=== PATIENT | female | born 1970 | race African-American/Black ===

== ENCOUNTER 2017-11-04 01:19 | Inpatient (IN) | payer MEDICAID ==
[~2017-11-04] VITALS: Ht 167.6 cm; Wt 87.6 kg
[2017-11-04 02:00] LABS: CALCIUM 8.2 mg/dL (8.5-10.1); CREATININE 3.6 mg/dL (0.6-1.0); GFR 13.6; POTASSIUM 4.1 mmol/L (3.5-5.1)
[2017-11-04] MEDS ORDERED: FUROSEMIDE 40 MG/4 ML VIAL. IVP ONE (02:00)
[2017-11-04 02:01] LABS: BASO % 1 % (0-3); EOS # 0.3 x10^3/uL (0.0-0.7); EOS % 5 % (0-3); HEMATOCRIT 26.9 % (36.0-47.0); HEMOGLOBIN 8.5 g/dL (12.0-15.5); LYMPH # 1.5 x10^3/uL (1.0-4.8); LYMPH % 22 % (24-48); MEAN CORPUSCULAR HEMOGLOBIN 25 pg (25-35); MEAN CORPUSCULAR HGB CONC 32 g/dL (31-37); MEAN CORPUSCULAR VOLUME 79 fL (79-100); MONO # 0.4 x10^3/uL (0.0-1.1); MONO % 6 % (0-9); NEUT # 4.5 x10^3uL (1.8-7.7); NEUT % 67 % (31-73); PLATELET COUNT 236 x10^3/uL (140-400); RED BLOOD COUNT 3.42 x10^6/uL (3.50-5.40); WHITE BLOOD COUNT 6.7 x10^3/uL (4.0-11.0)
[2017-11-04 02:08] LABS: ALBUMIN 2.4 g/dL (3.4-5.0); ALBUMIN/GLOBULIN RATIO 0.5 (1.0-1.7); TOTAL BILIRUBIN 0.1 mg/dL (0.2-1.0); TOTAL PROTEIN 7.2 g/dL (6.4-8.2)
--- NOTE | 2017-11-04 02:44 | RAD ---
PORTABLE CHEST 1V Clinical Indication: hx asthma; sob Comparison: Two-view chest July 19, 2004. Findings: The cardiomediastinal silhouette is normal. There is haziness in the bilateral lung bases with partial obscuration of the hemidiaphragms. This may be partially due to overlying soft tissues but cannot exclude airspace disease. There is no pneumothorax. No pleural effusion is appreciated. No acute bone abnormality. IMPRESSION: Cannot exclude mild bibasilar airspace disease. Electronically signed by: Fabio Knight MD (11/04/2017 2:41 AM) [facility]
--- NOTE | 2017-11-04 03:58 | PHYS DOC ---
Past Medical History Past Medical History: CHF, COPD, Diabetes-Type II, High Cholesterol, Hypertension Past Surgical History: Cholecystectomy, Tubal ligation, Other Additional Past Surgical Histo: KIDNEY BIOPSY, THYROID BIOPSY Alcohol Use: None Drug Use: None Adult General Chief Complaint Chief Complaint: SHORTNESS OF BREATH HPI HPI Patient is a 47-year-old female who presents with approximately 3 day history of shortness of breath that has been progressively worsening. She also indicates that she has been having swelling of her legs. Patient indicates that she has a history of CHF. She states that her shortness of breath is worsened with exertion as well as lying down flat. She also complains of chest pain that she describes as tightness across her chest. She states that that is also worsened with exertion. She does not believe that she has had a heart attack in the past. She does indicate that she has a family history of heart disease. She denies any nausea, vomiting or diaphoresis. Review of Systems Review of Systems Constitutional: Denies fever or chills [] Respiratory: Complains of cough and shortness of breath[] Cardiovascular: Complains of chest pain[] GI: Denies abdominal pain, nausea, vomiting [] All other systems were reviewed and found to be within normal limits, except as documented in this note. Current Medications Current Medications Current Medications Medications (Trade) Dose Ordered Sig/Nicole Start Time Stop Time Status Last Admin Dose Admin Furosemide (Lasix) 40 mg 1X ONCE 11/04/17 02:00 11/04/17 02:01 DC 11/04/17 02:32 40 MG Allergies Allergies Allergies Coded Allergies Type Severity Reaction Last Updated Verified Penicillins Allergy Unknown 11/04/17 Yes metoclopramide Allergy Unknown 11/04/17 Yes Physical Exam Physical Exam Constitutional: Well developed, well nourished, no acute distress, non-toxic appearance. [] HENT: Normocephalic, atraumatic, bilateral external ears normal, oropharynx moist, no oral exudates, nose normal. [] Eyes: PERRLA, EOMI, conjunctiva normal, no discharge. [] Neck: Normal range of motion, no tenderness, supple, no stridor. [] Cardiovascular:Heart rate regular rhythm [] Lungs & Thorax: There are fine rhonchi noted in the bilateral lung bases[] Abdomen: Bowel sounds normal, soft, no tenderness. [] Skin: Warm, dry, no erythema, no rash. [] Extremities: There is 2+ pitting edema noted to lower extremities bilaterally. [ ] Neurologic: Alert and oriented X 3, normal motor function, normal sensory function, no focal deficits noted. [] Current Patient Data Vital Signs Vital Signs Date Time Temp Pulse Resp B/P (MAP) Pulse Ox O2 Delivery O2 Flow Rate FiO2 11/04/17 01:42 98.3 93 24 172/81 (111) 95 Room Air 98.3 Lab Values Laboratory Tests Test 11/04/17 01:37 White Blood Count 6.7 x10^3/uL (4.0-11.0) Red Blood Count 3.42 x10^6/uL (3.50-5.40) L Hemoglobin 8.5 g/dL (12.0-15.5) L Hematocrit 26.9 % (36.0-47.0) L Mean Corpuscular Volume 79 fL (79-100) Mean Corpuscular Hemoglobin 25 pg (25-35) Mean Corpuscular Hemoglobin Concent 32 g/dL (31-37) Red Cell Distribution Width 20.0 % (11.5-14.5) H Platelet Count 236 x10^3/uL (140-400) Neutrophils (%) (Auto) 67 % (31-73) Lymphocytes (%) (Auto) 22 % (24-48) L Monocytes (%) (Auto) 6 % (0-9) Eosinophils (%) (Auto) 5 % (0-3) H Basophils (%) (Auto) 1 % (0-3) Neutrophils # (Auto) 4.5 x10^3uL (1.8-7.7) Lymphocytes # (Auto) 1.5 x10^3/uL (1.0-4.8) Monocytes # (Auto) 0.4 x10^3/uL (0.0-1.1) Eosinophils # (Auto) 0.3 x10^3/uL (0.0-0.7) Basophils # (Auto) 0.0 x10^3/uL (0.0-0.2) Sodium Level 134 mmol/L (136-145) L Potassium Level 4.1 mmol/L (3.5-5.1) Chloride Level 102 mmol/L (98-107) Carbon Dioxide Level 20 mmol/L (21-32) L Anion Gap 12 (6-14) Blood Urea Nitrogen 44 mg/dL (7-20) H Creatinine 3.6 mg/dL (0.6-1.0) H Estimated GFR (Cockcroft-Gault) 13.6 BUN/Creatinine Ratio 12 (6-20) Glucose Level 403 mg/dL (70-99) H Calcium Level 8.2 mg/dL (8.5-10.1) L Total Bilirubin 0.1 mg/dL (0.2-1.0) L Aspartate Amino Transferase (AST) 19 U/L (15-37) Alanine Aminotransferase (ALT) 22 U/L (14-59) Alkaline Phosphatase 108 U/L (46-116) Troponin I Quantitative < 0.017 ng/mL (0.000-0.055) PH-Taq-S-Type Natriuretic Peptide 1436 pg/mL (0-124) H Total Protein 7.2 g/dL (6.4-8.2) Albumin 2.4 g/dL (3.4-5.0) L Albumin/Globulin Ratio 0.5 (1.0-1.7) L Laboratory Tests 11/04/17 01:37 Laboratory Tests 11/04/17 01:37 EKG EKG [] Interpretation Time: EKG demonstrates normal sinus rhythm with rate of 88. Radiology/Procedures Radiology/Procedures [] Impressions: Chest x-ray demonstrates no infiltrate. Questionable early pulmonary venous congestion. Course & Med Decision Making Course & Med Decision Making Pertinent Labs and Imaging studies reviewed. (See chart for details) [] Dragon Disclaimer Dragon Disclaimer This electronic medical record was generated, in whole or in part, using a voice recognition dictation system. Departure Departure Impression: Primary Impression: Chest pain Additional Impressions: Dyspnea Acute on chronic renal failure Disposition: ADMITTED INPATIENT Admitting Physician: Xie. Holly Condition: IMPROVED Referrals: NO PCP (PCP) Problem Qualifiers Primary Impression: Chest pain Chest pain type: unspecified Qualified Codes: R07.9 - Chest pain, unspecified Additional Impressions: Dyspnea Dyspnea type: dyspnea on exertion Qualified Codes: R06.09 - Other forms of dyspnea Acute on chronic renal failure Acute renal failure type: unspecified Chronic kidney disease stage: unspecified stage Qualified Codes: N17.9 - Acute kidney failure, unspecified; N18.9 - Chronic kidney disease, unspecified LUIS RUBALCAVA Jr. DO Nov 04, 2017 03:58
[2017-11-04] MEDS ORDERED: NITROGLYCERIN SUBLINGUAL 0.4 MG BOTTLE OF 25. SL PRN (04:00)
[2017-11-04] MEDS ORDERED: ONDANSETRON PF 4 MG/2 ML VIAL. IV PRN ×2 (04:00→09:00)
[2017-11-04] MEDS ORDERED: MORPHINE SULFATE 2 MG/ML VIAL. IV PRN (04:00)
[2017-11-04 04:53] VITALS: BP 168/98
[2017-11-04] MEDS ORDERED: FLUO40CA2 PO (06:14)
[2017-11-04] MEDS ORDERED: OLAN5TAB9 PO (06:14)
[2017-11-04] MEDS ORDERED: IPRA3AMP29 NEB (06:14)
[2017-11-04] MEDS ORDERED: AMLO10TA2 PO (06:14)
[2017-11-04] MEDS ORDERED: CARV25TA2 PO (06:14)
[2017-11-04] MEDS ORDERED: INSU100C4 SQ (06:14)
[2017-11-04] MEDS ORDERED: FOLI1CAP10 PO (06:14)
[2017-11-04] MEDS ORDERED: CHOL10003 PO (06:14)
[2017-11-04] MEDS ORDERED: DILT120C80 PO (06:14)
[2017-11-04] MEDS ORDERED: ACET500T68 PO (06:14)
[2017-11-04] MEDS ORDERED: ATOR10TA60 PO (06:14)
[2017-11-04] MEDS ORDERED: FLUT1DIS5 IH (06:14)
[2017-11-04] MEDS ORDERED: FERR325T14 PO (06:14)
[2017-11-04] MEDS ORDERED: MEDR10TA3 PO (06:14)
[2017-11-04] MEDS ORDERED: INSU100I13 SQ (06:14)
[2017-11-04] MEDS ORDERED: DIPH25CA58 PO (06:14)
[2017-11-04] MEDS ORDERED: FURO40TA4 PO (06:14)
[2017-11-04 07:00] VITALS: BP 157/81
[2017-11-04] MEDS ORDERED: DEXTROSE 50% 25 GM / 50ML DISP.SYRIN. IV PRN (08:30)
--- NOTE | 2017-11-04 08:49 | PDOC2 ---
CARDIOLOGY CONSULT NOTE CHEIF COMPLAINT: Swelling. HPI: 47 y.o woman with presumed history of HF that she reports has been ongoing for 1 year and presented to this hospital with 4 weeks of worsening edema. She reports intermittent compliance with her meds and 2 months ago was at [facility] for similar reasons. Also knows about CKD. Denies any angina. No prior cath. +orthopnea, exertional dyspnea, LE edema. PMHX: HF DM2 HTN CKD SOCHX: No alcohol, tob or illicits. On disability FAMHX: No early CAD CURRENT MEDS: Coreg, diltiazem at home. ALLERGIES: Allergies Coded Allergies Type Severity Reaction Last Updated Verified Penicillins Allergy Unknown 11/04/17 Yes metoclopramide Allergy Unknown 11/04/17 Yes Uncoded Allergies Type Severity Reaction Last Updated Verified peanuts Allergy Severe Swelling 11/04/17 ROS: Negative for 12/23 systems reviewed unless otherwise noted above in HPI PHYSICAL EXAM: Vital Signs: Vital Signs Date Time Temp Pulse Resp B/P (MAP) Pulse Ox O2 Delivery O2 Flow Rate FiO2 11/04/17 07:00 97.9 99 16 157/81 (106) 97 Room Air 97.9 I & O Intake and Output 11/04/17 07:00 Intake Total 300 ml Output Total 300 ml Balance 0 ml Intake Oral 300 ml Output Urine Total 300 ml Physical Exam: GEN.: No apparent distress. Alert and oriented. HEENT: Head is normocephalic, atraumatic NECK: Supple. LUNGS: Clear to auscultation. HEART: RRR, S1, S2 present. Peripheral pulses intact ABDOMEN: Soft, nontender. Positive bowel sounds. Obese. EXTREMITIES: Without any cyanosis. 2+ pitting edema. NEUROLOGIC: Normal speech, normal tone PSYCHIATRIC: Normal affect, normal mood. SKIN: No ulcerations DIAGNOSTIC TESTING: anemia, BNP 1400, Cr 3.6 EKG unremarkable ASSESSMENT: 1. Acute on chronic probable systolic and diastolic dysfunction. 2. CHELITA on presumed CKD 3. DM2 4. HTN PLAN: 1. Await OSH records and echo in house. 2. Diuresis per nephrology 3. Ok to restart Coreg. Hold diltiazem. 4. May need bidil for BP control. Supportive care. Will follow along. LORI HERNANDEZ MD Nov 04, 2017 08:49
[2017-11-04] MEDS ORDERED: NON FORMULARY ITEM (Fluticasone/Salmeterol (Advair 500-50 Diskus) 1 PUFF) IH SCH (09:00)
[2017-11-04] MEDS ORDERED: diphenhydrAMINE HCL 25 MG CAPSULE PO PRN (09:00)
[2017-11-04] MEDS ORDERED: cloNIDine HCL 0.1 MG TABLET PO PRN (09:00)
[2017-11-04] MEDS ORDERED: ACETAMINOPHEN 500 MG TABLET PO PRN (09:00)
[2017-11-04] MEDS: INSULIN LISPRO 300 UNITS/3 ML INSULN.PEN. SQ SCH ×6 (09:14→16:57)
[2017-11-04] MEDS: FERROUS SULFATE 325 MG TABLET. PO SCH (09:33)
[2017-11-04] MEDS: OLANZapine 5 MG TABLET PO SCH (09:34)
[2017-11-04] MEDS: FLUoxetine HCL 20 MG CAPSULE PO SCH (09:34)
[2017-11-04] MEDS: ACETAMINOPHEN 500 MG TABLET PO SCH ×2 (09:34→20:35)
[2017-11-04] MEDS: CARVEDILOL 12.5 MG TABLET. PO SCH ×2 (09:34→16:54)
[2017-11-04] MEDS: amLODIPine BESYLATE 10 MG TABLET PO SCH (09:34)
[2017-11-04] MEDS: CHOLECALCIFEROL (VITAMIN D3) 1,000 UNIT TABLET PO SCH (09:34)
[2017-11-04] MEDS: FOLIC/VIT B COMP W-C (RENAL) TABLET. PO SCH (09:34)
--- NOTE | 2017-11-04 10:29 | EKG ---
[facility] [address] [place] [address] Test Date: 2017-11-04 Test Time: 01:22:02 Pat Name: ASH TAYLOR Department: Room: 578 1 Gender: F Touch Up Carver: : 1970 Requested By: LUIS RUBALCAVA Order Number: [id number] Reading MD: Marty Nazario MD Measurements Intervals [place] Rate: 88 P: 41 SC: 134 QRS: 56 QRSD: 66 T: -9 QT: 362 QTc: 441 Interpretive Statements SINUS RHYTHM Electronically Signed On 11-05-2017 10:47:40 CDT by Marty Nazario MD
[2017-11-04 10:51] LABS: BILIRUBIN,URINE NEGATIVE (NEG); CLARITY,URINE CLEAR; COLOR,URINE YELLOW; NITRITE,URINE NEGATIVE (NEG); PH,URINE 6.5; PROTEIN,URINE >=300 mg/dL (NEG-TRACE); UROBILINOGEN,URINE 0.2 mg/dL (0.2 mg/dL)
[2017-11-04] MEDS ORDERED: MAGNESIUM SULFATE 2GM 50 ML IV PRN (11:00)
[2017-11-04 11:02] LABS: BACTERIA,URINE FEW /HPF (0-FEW); SQUAMOUS EPITHELIAL CELL,UR FEW /LPF
[2017-11-04 11:03] LABS: TRICHOMONAS,URINE PRESENT
--- NOTE | 2017-11-04 11:09 | PDOC2 ---
CONSULT Date of Consult Date of Consult DATE: 11/04/17 TIME: 11:01 Reason for Consult Reason for Consult: Renal insufficiency. ? AK I on C KD plus CHF Referring Physician Referring Physician: Aravind Identification/Chief Complaint Chief Complaint Shortness of breath Source Source: Chart review, Patient History of Present Illness Reason for Visit: Soheila is a pleasant 47-year-old -Citizen Of [place] female who is known to have long-standing diabetes hypertension. She is also known to have chronic kidney disease and underwent a kidney biopsy at [facility]. Details of these are not available to me at this time. She has been seen by nephrology at and at [facility] by her reports. She cannot name names of her physicians. She presented the ER for further evaluation of her shortness of breath and is noted to have a creatinine 3.6 and we were asked to see her for the same. Past Medical History Past Medical History Positive for seizures, neuropathy, CHF, hyperlipidemia, hypertension, COPD, emphysema, asthma, bronchitis, peptic ulcer disease, cholecystectomy, chronic kidney disease stage unknown, long-standing diabetes, thyroidectomy, depression , prior smoker Cardiovascular: HTN, Hyperlipidemia CENTRAL NERVOUS SYSTEM: Seizure Heme/Onc: Anemia NOS Psych: Depression Endocrine: Diabetes Family History Family History: Coronary Artery Disease (denies early ), Kidney Disease (denies ) Social History Quit ALCOHOL: none Lives: with Family Current Problem List Problem List Problems Medical Problems: (1) Acute on chronic renal failure Status: Acute (2) Chest pain Status: Acute (3) Dyspnea Status: Acute Current Medications Current Medications Current Medications Furosemide (Lasix) 40 mg 1X ONCE IVP Last administered on 11/04/17at 02:32; Start 11/04/17 at 02:00; Stop 11/04/17 at 02:01; Status DC Ondansetron HCl (Zofran) 4 mg PRN Q8HRS PRN IV NAUSEA/VOMITING; Start 11/04/17 at 04:00; Stop 11/04/17 at 08:57; Status DC Morphine Sulfate (Morphine Sulfate) 2 mg PRN Q2HR PRN IV PAIN Last administered on 11/04/17at 05:32; Start 11/04/17 at 04:00; Stop 11/05/17 at 03:59 Nitroglycerin (Nitrostat) 0.4 mg PRN Q5MIN PRN SL CHEST PAIN; Start 11/04/17 at 04:00; Stop 11/05/17 at 03:59 Insulin Human Lispro (HumaLOG) 0-9 UNITS TIDWMEALS SQ ; Start 11/04/17 at 12:00 ; Stop 11/04/17 at 12:00; Status DC Dextrose (Dextrose 50%-Water Syringe) 12.5 gm PRN Q15MIN PRN IV SEE COMMENTS; Start 11/04/17 at 08:30 Insulin Human Lispro (HumaLOG) 10 units TIDWMEALS SQ ; Start 11/04/17 at 12:00; Stop 11/04/17 at 12:00; Status DC Albuterol/ Ipratropium (Duoneb) 3 ml RTQID NEB ; Start 11/04/17 at 08:30 Insulin Human Lispro (HumaLOG) 0-9 UNITS TIDWMEALS SQ Last administered on 11/04at 09:14; Start 11/04/17 at 09:00 Insulin Human Lispro (HumaLOG) 10 units TIDWMEALS SQ Last administered on at 09:15; Start 11/04/17 at 09:00 Ondansetron HCl (Zofran) 4 mg PRN Q6HRS PRN IV NAUSEA/VOMITING; Start 11/04/17 at 09:00 Acetaminophen (Tylenol) 500 mg PRN Q6HRS PRN PO MILD PAIN / TEMP; Start at 09:00 Clonidine HCl (Catapres) 0.1 mg PRN Q1HR PRN PO HYPERTENSION, SEE COMMENTS; Start 11/04/17 at 09:00 Acetaminophen (Tylenol) 1,000 mg BID PO Last administered on 11/04/17at 09:34; Start 11/04/17 at 09:00 Amlodipine Besylate (Norvasc) 10 mg DAILY PO Last administered on 11/04/17at 09: 34; Start 11/04/17 at 09:00 Atorvastatin Calcium (Lipitor) 10 mg HS PO ; Start 11/04/17 at 21:00 Vitamin D (Vitamin D3) 1,000 unit DAILY PO Last administered on 11/04/17at 09:34 ; Start 11/04/17 at 09:00 Diltiazem HCl (Cardizem 24hr Cd) 240 mg DAILY PO Last administered on at 09:35; Start 11/04/17 at 09:00 Diphenhydramine HCl (Benadryl) 25 mg PRN QHS PRN PO INSOMNIA; Start 11/04/17 at 09:00 Ferrous Sulfate (Feosol) 325 mg DAILY PO Last administered on 11/04/17at 09:33; Start 11/04/17 at 09:00 Insulin Glargine (Lantus) 30 units QHS SQ ; Start 11/04/17 at 21:00 Carvedilol (Coreg) 25 mg BIDWMEALS PO Last administered on 11/04/17at 09:34; Start 11/04/17 at 09:00 Fluoxetine HCl (PROzac) 40 mg DAILY PO Last administered on 11/04/17at 09:34; Start 11/04/17 at 09:00 Non-Formulary Medication (Fluticasone/ Salmeterol (Advair 500-50 Diskus)) 1 puff BID IH ; Start 11/04/17 at 09:00; Status UNV Vitamin B Complex/ Vitamin C (Oly-Nash) 1 tab DAILY PO Last administered on at 09:34; Start 11/04/17 at 09:00 Medroxyprogesterone Acetate (Provera) 10 mg DAILY PO Last administered on at 09:35; Start 11/04/17 at 09:00 Olanzapine (ZyPREXA) 5 mg DAILY PO Last administered on 11/04/17at 09:34; Start 11/04/17 at 09:00 Albuterol Sulfate (Ventolin Neb Soln) 2.5 mg RTQID NEB ; Start 11/04/17 at 12:00 Budesonide (Pulmicort) 0.5 mg RTBID NEB ; Start 11/04/17 at 10:00 Active Scripts Active Reported Lantus Solostar (Insulin Glargine,Hum.rec.anlog) 100 Unit/1 Ml Insuln.pen 30 Unit SQ QHS Novolog (Insulin Aspart) 100 Unit/1 Ml Cartridge 10 Unit SQ TIDBFRMEAL Advair 500-50 Diskus (Fluticasone/Salmeterol) 1 Each Disk.w.dev 1 Puff IH BID Atorvastatin Calcium 10 Mg Tablet 10 Mg PO HS Furosemide 40 Mg Tablet 60 Mg PO BID Amlodipine Besylate 10 Mg Tablet 10 Mg PO DAILY Vitamin D3 (Cholecalciferol (Vitamin D3)) 1,000 Unit Tablet 1 Tab PO DAILY Renal Caps Softgel (Folic Acid/Vitamin B Comp W-C) 1 Mg Capsule 1 Cap PO DAILY Diltiazem 24HR Cd (Diltiazem Hcl) 120 Mg Cap.er.24h 240 Mg PO DAILY Fluoxetine Hcl 40 Mg Capsule 1 Cap PO DAILYWBKFT Ferrous Sulfate 325 Mg Tablet 325 Mg PO DAILY Olanzapine 5 Mg Tablet 5 Mg PO DAILY Carvedilol 25 Mg Tablet 1 Tab PO BID Acetaminophen 500 Mg Tablet 2 Tab PO BID Benadryl (Diphenhydramine Hcl) 25 Mg Capsule 25 Mg PO PRN Q4-6HRS PRN Medroxyprogesterone Acetate 10 Mg Tablet 1 Tab PO DAILY Duoneb 0.5-3(2.5) Mg/3 Ml (Albuterol/Ipratropium) 3 Ml Ampul.neb 3 Ml NEB BID Allergies Allergies: Coded Allergies: Penicillins (Verified Allergy, Unknown, 11/04/17) metoclopramide (Verified Allergy, Unknown, 11/04/17) Uncoded Allergies: peanuts (Allergy, Severe, Swelling, 11/04/17) ROS Review of System Positive for weakness, fatigue, edema, slightly decreased appetite, decreased energy. All other systems are reviewed and are grossly negative Physical Exam Physical Exam General Appearance: Awake Alert Oriented x 3 In no visible Distress Eyes: VIsion Unchanged Conjunctiva Normal EN: No EN Drainage Mucous Memb. moist Neck: no JVD min JVP Supple no Thyromegaly CVS: S1 S2 soft Murmur No Gallop No Rub +2 Edema Resp: no Rales no Rhonchi no Acc. Muscle use GI: BAS +ve NO Bruit Non Tender Non Distended : no CVA tenderness; no Suprapubic Tenderness SKIN: no Rashes Breast Exam deferred Mu.Sk: Adequate ROM no Muscle Atrophy Heme: Unable to palpate Obvious LAD no Splenomegaly NEURO: Good Strength and Tone Cranial Nerves II - XII grossly intact Psych: appears Depressed no Active hallucination Vital Signs Vital Signs Date Time Temp Pulse Resp B/P (MAP) Pulse Ox O2 Delivery O2 Flow Rate FiO2 11/04/17 09:35 99 157/81 11/04/17 07:30 Room Air 11/04/17 07:00 97.9 16 97 97.9 Assessment & Plan CKD V - if this is her current and baseline renal function. Current FLuid and E- lyte status does not necessitate emergent need for Dialysis. Will re-evaluate for Dialysis in am. I suspect she has advanced renal insufficiency and is on the verge of needing dialysis. I will request records from including her kidney biopsy for review prior to proceeding with the same. Edema: IV Lasix as ordered, presumably due to CK D, proteinuria hypoalbuminemia Anemia: Workup as ordered start Epogen if iron levels are adequate. Transfuse as needed. HTN: Current BP meds reviewed. See orders for changes. Hypoalbuminemia: Check for proteinuria with 24-hour urine as ordered Diabetes: Appears to be poorly controlled Metabolic acidosis: 1 time IV bicarbonate will be ordered Discussed Plan of Care and prognosis etc. at length with family. Labs Labs Laboratory Tests Test 11/04/17 01:37 11/04/17 07:10 11/04/17 07:36 11/04/17 10:20 White Blood Count 6.7 x10^3/uL (4.0-11.0) Red Blood Count 3.42 x10^6/uL (3.50-5.40) Hemoglobin 8.5 g/dL (12.0-15.5) Hematocrit 26.9 % (36.0-47.0) Mean Corpuscular Volume 79 fL (79-100) Mean Corpuscular Hemoglobin 25 pg (25-35) Mean Corpuscular Hemoglobin Concent 32 g/dL (31-37) Red Cell Distribution Width 20.0 % (11.5-14.5) Platelet Count 236 x10^3/uL (140-400) Neutrophils (%) (Auto) 67 % (31-73) Lymphocytes (%) (Auto) 22 % (24-48) Monocytes (%) (Auto) 6 % (0-9) Eosinophils (%) (Auto) 5 % (0-3) Basophils (%) (Auto) 1 % (0-3) Neutrophils # (Auto) 4.5 x10^3uL (1.8-7.7) Lymphocytes # (Auto) 1.5 x10^3/uL (1.0-4.8) Monocytes # (Auto) 0.4 x10^3/uL (0.0-1.1) Eosinophils # (Auto) 0.3 x10^3/uL (0.0-0.7) Basophils # (Auto) 0.0 x10^3/uL (0.0-0.2) Sodium Level 134 mmol/L (136-145) Potassium Level 4.1 mmol/L (3.5-5.1) Chloride Level 102 mmol/L (98-107) Carbon Dioxide Level 20 mmol/L (21-32) Anion Gap 12 (6-14) Blood Urea Nitrogen 44 mg/dL (7-20) Creatinine 3.6 mg/dL (0.6-1.0) Estimated GFR (Cockcroft-Gault) 13.6 BUN/Creatinine Ratio 12 (6-20) Glucose Level 403 mg/dL (70-99) Calcium Level 8.2 mg/dL (8.5-10.1) Total Bilirubin 0.1 mg/dL (0.2-1.0) Aspartate Amino Transf (AST/SGOT) 19 U/L (15-37) Alanine Aminotransferase (ALT/SGPT) 22 U/L (14-59) Alkaline Phosphatase 108 U/L (46-116) Troponin I Quantitative < 0.017 ng/mL (0.000-0.055) < 0.017 ng/mL (0.000-0.055) < 0.017 ng/mL (0.000-0.055) CC-Kfq-Z-Type Natriuretic Peptide 1436 pg/mL (0-124) Total Protein 7.2 g/dL (6.4-8.2) Albumin 2.4 g/dL (3.4-5.0) Albumin/Globulin Ratio 0.5 (1.0-1.7) Glucose (Fingerstick) 399 mg/dL (70-99) Laboratory Tests Test 11/04/17 01:37 11/04/17 07:10 11/04/17 07:36 11/04/17 10:20 White Blood Count 6.7 x10^3/uL (4.0-11.0) Red Blood Count 3.42 x10^6/uL (3.50-5.40) Hemoglobin 8.5 g/dL (12.0-15.5) Hematocrit 26.9 % (36.0-47.0) Mean Corpuscular Volume 79 fL (79-100) Mean Corpuscular Hemoglobin 25 pg (25-35) Mean Corpuscular Hemoglobin Concent 32 g/dL (31-37) Red Cell Distribution Width 20.0 % (11.5-14.5) Platelet Count 236 x10^3/uL (140-400) Neutrophils (%) (Auto) 67 % (31-73) Lymphocytes (%) (Auto) 22 % (24-48) Monocytes (%) (Auto) 6 % (0-9) Eosinophils (%) (Auto) 5 % (0-3) Basophils (%) (Auto) 1 % (0-3) Neutrophils # (Auto) 4.5 x10^3uL (1.8-7.7) Lymphocytes # (Auto) 1.5 x10^3/uL (1.0-4.8) Monocytes # (Auto) 0.4 x10^3/uL (0.0-1.1) Eosinophils # (Auto) 0.3 x10^3/uL (0.0-0.7) Basophils # (Auto) 0.0 x10^3/uL (0.0-0.2) Sodium Level 134 mmol/L (136-145) Potassium Level 4.1 mmol/L (3.5-5.1) Chloride Level 102 mmol/L (98-107) Carbon Dioxide Level 20 mmol/L (21-32) Anion Gap 12 (6-14) Blood Urea Nitrogen 44 mg/dL (7-20) Creatinine 3.6 mg/dL (0.6-1.0) Estimated GFR (Cockcroft-Gault) 13.6 BUN/Creatinine Ratio 12 (6-20) Glucose Level 403 mg/dL (70-99) Calcium Level 8.2 mg/dL (8.5-10.1) Total Bilirubin 0.1 mg/dL (0.2-1.0) Aspartate Amino Transf (AST/SGOT) 19 U/L (15-37) Alanine Aminotransferase (ALT/SGPT) 22 U/L (14-59) Alkaline Phosphatase 108 U/L (46-116) Troponin I Quantitative < 0.017 ng/mL (0.000-0.055) < 0.017 ng/mL (0.000-0.055) < 0.017 ng/mL (0.000-0.055) PH-Yuq-U-Type Natriuretic Peptide 1436 pg/mL (0-124) Total Protein 7.2 g/dL (6.4-8.2) Albumin 2.4 g/dL (3.4-5.0) Albumin/Globulin Ratio 0.5 (1.0-1.7) Glucose (Fingerstick) 399 mg/dL (70-99) Review All relevant outside records, renal labs, imaging studies, telemetry/EKG's were reviewed. Images Images The cardiomediastinal silhouette is normal. There is haziness in the bilateral lung bases with partial obscuration of the hemidiaphragms. This may be partially due to overlying soft tissues but cannot exclude airspace disease. There is no pneumothorax. No pleural effusion is appreciated. No acute bone abnormality. IMPRESSION: Cannot exclude mild bibasilar airspace disease. TARAS VÁZQUEZ MD Nov 04, 2017 11:09
[2017-11-04] MEDS: IPRATRPIUM/ALBUTEROL 0.5/2.5MG 3 ML NEBU. NEB SCH ×4 (11:15→20:19)
[2017-11-04] MEDS: BUDESONIDE 0.5 MG/2 ML NEBU. NEB SCH ×2 (11:15→20:19)
--- NOTE | 2017-11-04 11:18 | PDOC1 ---
History and Physical Date of Admission Date of Admission DATE: 11/04/17 TIME: 11:15 Identification/Chief Complaint Chief Complaint Feeling unwell, shortness of breath, chest pains per chart Source Source: Caregiver, Chart review, Patient History of Present Illness History of Present Illness NO the best historian but possibly because she is feeling unwell. 47 year old female, sees a free clinic, admitted because of chest pain and dyspnea she does have history of CHF, some airspace disease on chest x-ray. I'm unsure if she is on Lasix at home She cannot tell me her home meds but she is a diabetic on insulin with unknown hemoglobin A1c. But blood sugars are running high 300s to 400s here. She claims her blood sugars at home are 200s. Also has a creatinine of 3.6 with unknown baseline. BNP is 1500. Admitted with renal and cardiology consulted. She complains of headache to me and feeling weak, she only ate toast for breakfast. Labs as per above. I'm admitting and treating for CHF, AK I with unknown creatinine baseline. Avoid nephrotoxins. Add some PTOT and go from there. Past Medical History Cardiovascular: HTN, Hyperlipidemia CENTRAL NERVOUS SYSTEM: Seizure Heme/Onc: Anemia NOS Psych: Depression Endocrine: Diabetes Past Surgical History Past Surgical History: No pertinent history Family History Family History: High Cholestrol, Hypertension Social History Smoke: No ALCOHOL: none Drugs: None Current Problem List Problem List Problems Medical Problems: (1) Acute on chronic renal failure Status: Acute (2) Chest pain Status: Acute (3) Dyspnea Status: Acute Current Medications Current Medications Current Medications Furosemide (Lasix) 40 mg 1X ONCE IVP Last administered on 11/04/17at 02:32; Start 11/04/17 at 02:00; Stop 11/04/17 at 02:01; Status DC Ondansetron HCl (Zofran) 4 mg PRN Q8HRS PRN IV NAUSEA/VOMITING; Start 11/04/17 at 04:00; Stop 11/04/17 at 08:57; Status DC Morphine Sulfate (Morphine Sulfate) 2 mg PRN Q2HR PRN IV PAIN Last administered on 11/04/17at 05:32; Start 11/04/17 at 04:00; Stop 11/05/17 at 03:59 Nitroglycerin (Nitrostat) 0.4 mg PRN Q5MIN PRN SL CHEST PAIN; Start 11/04/17 at 04:00; Stop 11/05/17 at 03:59 Insulin Human Lispro (HumaLOG) 0-9 UNITS TIDWMEALS SQ ; Start 11/04/17 at 12:00 ; Stop 11/04/17 at 12:00; Status DC Dextrose (Dextrose 50%-Water Syringe) 12.5 gm PRN Q15MIN PRN IV SEE COMMENTS; Start 11/04/17 at 08:30 Insulin Human Lispro (HumaLOG) 10 units TIDWMEALS SQ ; Start 11/04/17 at 12:00; Stop 11/04/17 at 12:00; Status DC Albuterol/ Ipratropium (Duoneb) 3 ml RTQID NEB ; Start 11/04/17 at 08:30 Insulin Human Lispro (HumaLOG) 0-9 UNITS TIDWMEALS SQ Last administered on 11/04at 09:14; Start 11/04/17 at 09:00 Insulin Human Lispro (HumaLOG) 10 units TIDWMEALS SQ Last administered on at 09:15; Start 11/04/17 at 09:00 Ondansetron HCl (Zofran) 4 mg PRN Q6HRS PRN IV NAUSEA/VOMITING; Start 11/04/17 at 09:00 Acetaminophen (Tylenol) 500 mg PRN Q6HRS PRN PO MILD PAIN / TEMP; Start at 09:00 Clonidine HCl (Catapres) 0.1 mg PRN Q1HR PRN PO HYPERTENSION, SEE COMMENTS; Start 11/04/17 at 09:00 Acetaminophen (Tylenol) 1,000 mg BID PO Last administered on 11/04/17at 09:34; Start 11/04/17 at 09:00 Amlodipine Besylate (Norvasc) 10 mg DAILY PO Last administered on 11/04/17at 09: 34; Start 11/04/17 at 09:00 Atorvastatin Calcium (Lipitor) 10 mg HS PO ; Start 11/04/17 at 21:00 Vitamin D (Vitamin D3) 1,000 unit DAILY PO Last administered on 11/04/17at 09:34 ; Start 11/04/17 at 09:00 Diltiazem HCl (Cardizem 24hr Cd) 240 mg DAILY PO Last administered on 09:35; Start 11/04/17 at 09:00 Diphenhydramine HCl (Benadryl) 25 mg PRN QHS PRN PO INSOMNIA; Start 11/04/17 at 09:00 Ferrous Sulfate (Feosol) 325 mg DAILY PO Last administered on 11/04/17at 09:33; Start 11/04/17 at 09:00 Insulin Glargine (Lantus) 30 units QHS SQ ; Start 11/04/17 at 21:00 Carvedilol (Coreg) 25 mg BIDWMEALS PO Last administered on 11/04/17 09:34; Start 11/04/17 at 09:00 Fluoxetine HCl (PROzac) 40 mg DAILY PO Last administered on 11/04/17at 09:34; Start 11/04/17 at 09:00 Non-Formulary Medication (Fluticasone/ Salmeterol (Advair 500-50 Diskus)) 1 puff BID IH ; Start 11/04/17 at 09:00; Status UNV Vitamin B Complex/ Vitamin C (Oly-Nash) 1 tab DAILY PO Last administered on 09:34; Start 11/04/17 at 09:00 Medroxyprogesterone Acetate (Provera) 10 mg DAILY PO Last administered on at 09:35; Start 11/04/17 at 09:00 Olanzapine (ZyPREXA) 5 mg DAILY PO Last administered on 11/04/17at 09:34; Start 11/04/17 at 09:00 Albuterol Sulfate (Ventolin Neb Soln) 2.5 mg RTQID NEB ; Start 11/04/17 at 12:00 Budesonide (Pulmicort) 0.5 mg RTBID NEB ; Start 11/04/17 at 10:00 Magnesium Sulfate 50 ml @ 25 mls/hr PRN DAILY PRN IV for Mag < 1.7 on am labs; Start 11/04/17 at 11:00 Active Scripts Active Reported Lantus Solostar (Insulin Glargine,Hum.rec.anlog) 100 Unit/1 Ml Insuln.pen 30 Unit SQ QHS Novolog (Insulin Aspart) 100 Unit/1 Ml Cartridge 10 Unit SQ TIDBFRMEAL Advair 500-50 Diskus (Fluticasone/Salmeterol) 1 Each Disk.w.dev 1 Puff IH BID Atorvastatin Calcium 10 Mg Tablet 10 Mg PO HS Furosemide 40 Mg Tablet 60 Mg PO BID Amlodipine Besylate 10 Mg Tablet 10 Mg PO DAILY Vitamin D3 (Cholecalciferol (Vitamin D3)) 1,000 Unit Tablet 1 Tab PO DAILY Renal Caps Softgel (Folic Acid/Vitamin B Comp W-C) 1 Mg Capsule 1 Cap PO DAILY Diltiazem 24HR Cd (Diltiazem Hcl) 120 Mg Cap.er.24h 240 Mg PO DAILY Fluoxetine Hcl 40 Mg Capsule 1 Cap PO DAILYWBKFT Ferrous Sulfate 325 Mg Tablet 325 Mg PO DAILY Olanzapine 5 Mg Tablet 5 Mg PO DAILY Carvedilol 25 Mg Tablet 1 Tab PO BID Acetaminophen 500 Mg Tablet 2 Tab PO BID Benadryl (Diphenhydramine Hcl) 25 Mg Capsule 25 Mg PO PRN Q4-6HRS PRN Medroxyprogesterone Acetate 10 Mg Tablet 1 Tab PO DAILY Duoneb 0.5-3(2.5) Mg/3 Ml (Albuterol/Ipratropium) 3 Ml Ampul.neb 3 Ml NEB BID Allergies Allergies: Coded Allergies: Penicillins (Verified Allergy, Unknown, 11/04/17) metoclopramide (Verified Allergy, Unknown, 11/04/17) Uncoded Allergies: peanuts (Allergy, Severe, Swelling, 11/04/17) ROS Review of System Per history of present illness, the rest of ROS is limited Physical Exam General: Alert, Oriented X3, No acute distress, Other (feeling unwell, complains of a headache) HEENT: PERRLA Lungs: Clear to auscultation, Normal air movement, Other (decrease breath sounds on the bases but no wheezing appreciable) Cardiovascular: S1, S2 Breasts: Normal, Rt breast nml w/o mass, Lt breast nml w/o mass, Nipples normal Abdomen: Normal bowel sounds, Soft, No tenderness, No hepatosplenomegaly, No masses Rectal Exam: not examined PELVIC: Nml ext genitalia Extremities: No clubbing, No cyanosis, No edema, Normal pulses, No tenderness/ swelling Skin: No rashes, No breakdown, No significant lesion Neuro: Normal gait, Normal speech, Strength at 5/5 X4 ext, Normal tone, Sensation intact, Cranial nerves 3-12 NL, Reflexes 2+ Psych/Mental Status: Mental status NL, Mood NL Vitals Vitals Vital Signs Date Time Temp Pulse Resp B/P (MAP) Pulse Ox O2 Delivery O2 Flow Rate FiO2 11/04/17 09:35 99 157/81 11/04/17 07:30 Room Air 11/04/17 07:00 97.9 16 97 97.9 Labs Labs Laboratory Tests Test 11/04/17 01:37 11/04/17 07:10 11/04/17 07:36 11/04/17 10:00 White Blood Count 6.7 x10^3/uL (4.0-11.0) Red Blood Count 3.42 x10^6/uL (3.50-5.40) Hemoglobin 8.5 g/dL (12.0-15.5) Hematocrit 26.9 % (36.0-47.0) Mean Corpuscular Volume 79 fL (79-100) Mean Corpuscular Hemoglobin 25 pg (25-35) Mean Corpuscular Hemoglobin Concent 32 g/dL (31-37) Red Cell Distribution Width 20.0 % (11.5-14.5) Platelet Count 236 x10^3/uL (140-400) Neutrophils (%) (Auto) 67 % (31-73) Lymphocytes (%) (Auto) 22 % (24-48) Monocytes (%) (Auto) 6 % (0-9) Eosinophils (%) (Auto) 5 % (0-3) Basophils (%) (Auto) 1 % (0-3) Neutrophils # (Auto) 4.5 x10^3uL (1.8-7.7) Lymphocytes # (Auto) 1.5 x10^3/uL (1.0-4.8) Monocytes # (Auto) 0.4 x10^3/uL (0.0-1.1) Eosinophils # (Auto) 0.3 x10^3/uL (0.0-0.7) Basophils # (Auto) 0.0 x10^3/uL (0.0-0.2) Sodium Level 134 mmol/L (136-145) Potassium Level 4.1 mmol/L (3.5-5.1) Chloride Level 102 mmol/L (98-107) Carbon Dioxide Level 20 mmol/L (21-32) Anion Gap 12 (6-14) Blood Urea Nitrogen 44 mg/dL (7-20) Creatinine 3.6 mg/dL (0.6-1.0) Estimated GFR (Cockcroft-Gault) 13.6 BUN/Creatinine Ratio 12 (6-20) Glucose Level 403 mg/dL (70-99) Calcium Level 8.2 mg/dL (8.5-10.1) Total Bilirubin 0.1 mg/dL (0.2-1.0) Aspartate Amino Transf (AST/SGOT) 19 U/L (15-37) Alanine Aminotransferase (ALT/SGPT) 22 U/L (14-59) Alkaline Phosphatase 108 U/L (46-116) Troponin I Quantitative < 0.017 ng/mL (0.000-0.055) < 0.017 ng/mL (0.000-0.055) FV-Arg-W-Type Natriuretic Peptide 1436 pg/mL (0-124) Total Protein 7.2 g/dL (6.4-8.2) Albumin 2.4 g/dL (3.4-5.0) Albumin/Globulin Ratio 0.5 (1.0-1.7) Glucose (Fingerstick) 399 mg/dL (70-99) Urine Collection Type Unknown Urine Color Yellow Urine Clarity Clear Urine pH 6.5 Urine Specific Saxis 1.015 Urine Protein >=300 mg/dL (NEG-TRACE) Urine Glucose (UA) 500 mg/dL (NEG) Urine Ketones (Stick) Negative mg/dL (NEG) Urine Blood Trace (NEG) Urine Nitrite Negative (NEG) Urine Bilirubin Negative (NEG) Urine Urobilinogen Dipstick 0.2 mg/dL (0.2 mg/dL) Urine Leukocyte Esterase Trace (NEG) Urine RBC 3-5 /HPF (0-2) Urine WBC 1-4 /HPF (0-4) Urine Squamous Epithelial Cells Few /LPF Urine Bacteria Few /HPF (0-FEW) Urine Trichomonas Present Test 11/04/17 10:20 11/04/17 10:54 Troponin I Quantitative < 0.017 ng/mL (0.000-0.055) Glucose (Fingerstick) 369 mg/dL (70-99) Laboratory Tests Test 11/04/17 01:37 11/04/17 07:10 11/04/17 07:36 11/04/17 10:00 White Blood Count 6.7 x10^3/uL (4.0-11.0) Red Blood Count 3.42 x10^6/uL (3.50-5.40) Hemoglobin 8.5 g/dL (12.0-15.5) Hematocrit 26.9 % (36.0-47.0) Mean Corpuscular Volume 79 fL (79-100) Mean Corpuscular Hemoglobin 25 pg (25-35) Mean Corpuscular Hemoglobin Concent 32 g/dL (31-37) Red Cell Distribution Width 20.0 % (11.5-14.5) Platelet Count 236 x10^3/uL (140-400) Neutrophils (%) (Auto) 67 % (31-73) Lymphocytes (%) (Auto) 22 % (24-48) Monocytes (%) (Auto) 6 % (0-9) Eosinophils (%) (Auto) 5 % (0-3) Basophils (%) (Auto) 1 % (0-3) Neutrophils # (Auto) 4.5 x10^3uL (1.8-7.7) Lymphocytes # (Auto) 1.5 x10^3/uL (1.0-4.8) Monocytes # (Auto) 0.4 x10^3/uL (0.0-1.1) Eosinophils # (Auto) 0.3 x10^3/uL (0.0-0.7) Basophils # (Auto) 0.0 x10^3/uL (0.0-0.2) Sodium Level 134 mmol/L (136-145) Potassium Level 4.1 mmol/L (3.5-5.1) Chloride Level 102 mmol/L (98-107) Carbon Dioxide Level 20 mmol/L (21-32) Anion Gap 12 (6-14) Blood Urea Nitrogen 44 mg/dL (7-20) Creatinine 3.6 mg/dL (0.6-1.0) Estimated GFR (Cockcroft-Gault) 13.6 BUN/Creatinine Ratio 12 (6-20) Glucose Level 403 mg/dL (70-99) Calcium Level 8.2 mg/dL (8.5-10.1) Total Bilirubin 0.1 mg/dL (0.2-1.0) Aspartate Amino Transf (AST/SGOT) 19 U/L (15-37) Alanine Aminotransferase (ALT/SGPT) 22 U/L (14-59) Alkaline Phosphatase 108 U/L (46-116) Troponin I Quantitative < 0.017 ng/mL (0.000-0.055) < 0.017 ng/mL (0.000-0.055) BD-Qcb-M-Type Natriuretic Peptide 1436 pg/mL (0-124) Total Protein 7.2 g/dL (6.4-8.2) Albumin 2.4 g/dL (3.4-5.0) Albumin/Globulin Ratio 0.5 (1.0-1.7) Glucose (Fingerstick) 399 mg/dL (70-99) Urine Collection Type Unknown Urine Color Yellow Urine Clarity Clear Urine pH 6.5 Urine Specific Saxis 1.015 Urine Protein >=300 mg/dL (NEG-TRACE) Urine Glucose (UA) 500 mg/dL (NEG) Urine Ketones (Stick) Negative mg/dL (NEG) Urine Blood Trace (NEG) Urine Nitrite Negative (NEG) Urine Bilirubin Negative (NEG) Urine Urobilinogen Dipstick 0.2 mg/dL (0.2 mg/dL) Urine Leukocyte Esterase Trace (NEG) Urine RBC 3-5 /HPF (0-2) Urine WBC 1-4 /HPF (0-4) Urine Squamous Epithelial Cells Few /LPF Urine Bacteria Few /HPF (0-FEW) Urine Trichomonas Present Test 11/04/17 10:20 11/04/17 10:54 Troponin I Quantitative < 0.017 ng/mL (0.000-0.055) Glucose (Fingerstick) 369 mg/dL (70-99) VTE Prophylaxis Ordered VTE Prophylaxis Devices: Yes VTE Pharmacological Prophylaxi: Yes Assessment/Plan Assessment/Plan 1. Acute on chronic probable systolic and diastolic dysfunction. 2. CHELITA on presumed CKD 3. DM2 uncontrolled 4. HTN 5. GEn weakness PLAN: admit 2 midnights Avoid nephrotoxins Consults cardiology and nephrology Sliding scale insulin high-dose Check hemoglobin A1c I have reconciled home meds PT OT Further conditions pending above DOROTHY STARK MD Nov 04, 2017 11:18
[2017-11-04 11:25] VITALS: BP 144/81
[2017-11-04] MEDS ORDERED: INSULIN LISPRO 300 UNITS/3 ML INSULN.PEN. SQ SCH ×2 (12:00)
[2017-11-04] MEDS: ALBUTEROL SULFATE 2.5 MG/3 ML NEBU. NEB SCH ×2 (12:00→16:00)
[2017-11-04] MEDS: SODIUM BICARB ADULT 8.4% 50 MEQ/50 ML DISP.SYRIN. IV SCH ×2 (12:16→14:46)
[2017-11-04 14:00] LABS: URIC ACID 7.2 mg/dL (2.6-6.0)
--- NOTE | 2017-11-04 14:51 | RAD ---
EXAM: Renal sonogram. HISTORY: Renal failure. TECHNIQUE: Sonographic imaging of the kidneys and bladder was performed. COMPARISON: None. FINDINGS: The right kidney measures 11.8 cm [id number]. The left kidney measures 12.0 cm [id number]. No solid or cystic renal lesion is seen. There is no hydronephrosis. The ureteral jets are both seen. The bladder is unremarkable. There are elevated renal resistive indices, measuring 0.79 on the right and 0.77 on the left. There are bilateral pleural effusions. IMPRESSION: Elevated renal resistive indices. This can be seen with intrinsic renal disease. The kidneys are otherwise sonographically unremarkable. Electronically signed by: Migdalia Amaro MD (11/04/2017 2:48 PM) [facility]
[2017-11-04 15:55] VITALS: BP 134/79
[2017-11-04] MEDS ORDERED: INSULIN LISPRO 300 UNITS/3 ML INSULN.PEN. SQ ONE (17:00)
[2017-11-04 19:00] VITALS: BP 138/75
[2017-11-04] MEDS: ATORVASTATIN CALCIUM 10 MG TABLET. PO SCH (20:35)
[2017-11-04] MEDS: INSULIN GLARGINE 300 UNITS/3 ML INSULN.PEN. SQ SCH (20:39)
[2017-11-04] MEDS ORDERED: INSULIN GLARGINE 300 UNITS/3 ML INSULN.PEN. SQ SCH (21:00)
[2017-11-04 22:54] VITALS: BP 136/77
[2017-11-05 00:11] LABS: PHOSPHORUS PTH 4.4 mg/dL (2.5-4.5); PTH INTACT 142 pg/mL (15-65)
[2017-11-05] MEDS: ALBUTEROL SULFATE 2.5 MG/3 ML NEBU. NEB PRN ×2 (00:21→17:48)
[2017-11-05 03:00] VITALS: BP 140/71
[2017-11-05 04:06] LABS: ALBUMIN 1.8 g/dL (3.4-5.0); CALCIUM 8.3 mg/dL (8.5-10.1); CREATININE 3.3 mg/dL (0.6-1.0); GFR 18.2; MAGNESIUM 1.7 mg/dL (1.8-2.4); PHOSPHORUS 3.4 mg/dL (2.6-4.7)
[2017-11-05] MEDS: IPRATRPIUM/ALBUTEROL 0.5/2.5MG 3 ML NEBU. NEB SCH ×4 (06:59→19:37)
[2017-11-05] MEDS: BUDESONIDE 0.5 MG/2 ML NEBU. NEB SCH ×2 (06:59→19:37)
[2017-11-05 07:00] VITALS: BP 155/88
[2017-11-05 07:11] LABS: HEMOGLOBIN A1C 9.4 % (4.8-5.6)
[2017-11-05] MEDS: FERROUS SULFATE 325 MG TABLET. PO SCH (08:12)
[2017-11-05] MEDS: ACETAMINOPHEN 500 MG TABLET PO SCH ×2 (08:12→20:04)
[2017-11-05] MEDS: FLUoxetine HCL 20 MG CAPSULE PO SCH (08:12)
[2017-11-05] MEDS: FOLIC/VIT B COMP W-C (RENAL) TABLET. PO SCH (08:12)
[2017-11-05] MEDS: CHOLECALCIFEROL (VITAMIN D3) 1,000 UNIT TABLET PO SCH (08:12)
[2017-11-05] MEDS: OLANZapine 5 MG TABLET PO SCH (08:13)
[2017-11-05] MEDS: amLODIPine BESYLATE 10 MG TABLET PO SCH (08:13)
[2017-11-05] MEDS: CARVEDILOL 12.5 MG TABLET. PO SCH ×2 (08:13→17:38)
[2017-11-05] MEDS: INSULIN LISPRO 300 UNITS/3 ML INSULN.PEN. SQ SCH ×6 (08:21→17:41)
--- NOTE | 2017-11-05 10:47 | PDOC ---
Renal-Progress Notes Subjective Notes Notes NO COMPLAINTS History of Present Illness Hx of present illness STABLE Vitals Vitals Vital Signs Date Time Temp Pulse Resp B/P (MAP) Pulse Ox O2 Delivery O2 Flow Rate FiO2 11/05/17 08:13 100 155/88 11/05/17 08:00 Room Air 11/05/17 07:00 96 11/05/17 07:00 97.7 18 97.7 Weight Weight [ ] I.O. Intake and Output Intake and Output 11/05/17 07:00 Intake Total 420 ml Output Total 850 ml Balance -430 ml Intake Oral 420 ml Output Urine Total 850 ml Labs Labs Laboratory Tests Test 11/04/17 10:54 11/04/17 12:20 11/04/17 13:10 11/04/17 16:24 Glucose (Fingerstick) 369 mg/dL (70-99) 63 mg/dL (70-99) Urine Random Sodium 79 mmol/L (Not Estab.) Reticulocyte Count (auto) 1.5 % (0.5-2.5) Estimated GFR (Non- 17 (>59) Hemoglobin A1c 9.4 % (4.8-5.6) Uric Acid 7.2 mg/dL (2.6-6.0) Iron Level 36 ug/dL (50-170) Total Iron Binding Capacity 202 ug/dL (250-450) Iron Saturation 18 % (15-34) Ferritin 84 ng/mL (8-252) Creatine Kinase 170 U/L (26-192) EGFR 20 (>59) PTH (Intact) Specimen Description Comment (.) Parathyroid Hormone (Intact) 142 pg/mL (15-65) Calcium (PTH Intact) 8.0 mg/dL (8.7-10.2) Creatinine (PTH Intact) 3.10 mg/dL (0.57-1.00) Phosphorus (PTH Intact) 4.4 mg/dL (2.5-4.5) Test 11/04/17 16:43 11/04/17 17:14 11/04/17 20:33 11/05/17 03:05 Glucose (Fingerstick) 60 mg/dL (70-99) 150 mg/dL (70-99) 292 mg/dL (70-99) Hemoglobin 8.1 g/dL (12.0-15.5) Sodium Level 136 mmol/L (136-145) Potassium Level 4.0 mmol/L (3.5-5.1) Chloride Level 105 mmol/L (98-107) Carbon Dioxide Level 23 mmol/L (21-32) Anion Gap 8 (6-14) Blood Urea Nitrogen 37 mg/dL (7-20) Creatinine 3.3 mg/dL (0.6-1.0) Estimated GFR (Cockcroft-Gault) 18.2 Glucose Level 287 mg/dL (70-99) Calcium Level 8.3 mg/dL (8.5-10.1) Phosphorus Level 3.4 mg/dL (2.6-4.7) Magnesium Level 1.7 mg/dL (1.8-2.4) Albumin 1.8 g/dL (3.4-5.0) Test 11/05/17 07:42 Glucose (Fingerstick) 159 mg/dL (70-99) Review of Systems Constitutional: yes: no symptom reported Ears/Nose/Throat: Yes: no symptom reported Eyes: Yes: no symptom reported Pulmonary: Yes no symptom reported Cardiovascular: Yes chest pain Gastrointestional: Yes: constipation Genitourinary: Yes: no symptom reported Musculoskeletal: Yes: no symptom reported Skin: Yes no symptom reported Psychiatric/Neurological: Yes: no symptom reported Endocrine: Yes: no symptom reported Physical Exam General Appearance: no apparent distress Respiratory: bilateral CTA Heart: S1S2 Abdomen: soft, bowel sounds present Genitourinary: bladder flat Extremities: pulses present Neurology: alert, oriented Assessment Assessment IMP CKD STAGE 4 WITH CR OF ABOUT 3.0-3.5 DM II HTN ANEMIA CHEST PAIN NON COMPLIANCE PLAN CARDIOLOGY EVALUATION RESUME HER HTN MEDS ENC COMPLIANCE ADE BECK MD Nov 05, 2017 10:46
[2017-11-05 11:00] VITALS: BP 160/82
--- NOTE | 2017-11-05 11:34 | CARD ---
MR#: [id number] Date of Study: 11/05/2017 Ordering Physician: LORI HERNANDEZ, Referring Physician: CORRIE REESE Tech: Mery German APPROVED REPORT EXAM: Two-dimensional and M-mode echocardiogram with Doppler and color Doppler. Other Information Quality : GoodHR: 92bpm INDICATION Congestive Heart Failure 2D DIMENSIONS RVDd2.1 (2.9-3.5cm)Left Atrium(2D)4.0 (1.6-4.0cm) IVSd1.4 (0.7-1.1cm)Aortic Root(2D)3.3 (2.0-3.7cm) LVDd5.2 (3.9-5.9cm)LVOT Diameter2.0 (1.8-2.4cm) PWd1.6 (0.7-1.1cm)LVDs2.2 (2.5-4.0cm) FS (%) 57.0 %SV113.8 ml LVEF(%)86.9 (>50%) M-Mode DIMENSIONS RVDd2.10 (2.1-3.2cm)Left Atrium(MM)4.00 (2.5-4.0cm) IVSd1.40 (0.7-1.1cm)Aortic Root5.20 (2.2-3.7cm) LVDd5.20 (4.0-5.6cm)PWd1.60 (0.7-1.1cm) Aortic Valve AoV Peak Brennon.151.3cm/sAoV VTI30.3cm AO Peak GR.9.2mmHgLVOT Peak Brennon.104.1cm/s AO Mean GR.5mmHgAVA (VMAX)2.14cm2 Mitral Valve MV E Iwhmzqwz284.3cm/sMV DECEL HHPR170dr MV A Adfwbtri40.5cm/sE/A Ratio2.0 Tricuspid Valve TR P. Kxfuuxgl246xp/sRAP [id number] TR Peak Gr.81nnIsGCOC79gvWl LEFT VENTRICLE The left ventricle is normal size. There is mild to moderate concentric left ventricular hypertrophy. The left ventricular systolic function is normal. The Ejection Fraction is 65% There is normal LV se gmental wall motion. Transmitral Doppler flow pattern is Grade II-pseudonormal filling dynamics. RIGHT VENTRICLE The right ventricle is normal size. There is normal right ventricular wall thickness. The right ventr icular systolic function is normal. ATRIA The left atrium is borderline dilated. The right atrium size is normal. The interatrial septum is int act with no evidence for an atrial septal defect or patent foramen ovale as noted on 2-D or Doppler i maging. AORTIC VALVE The aortic valve is normal in structure and function. Doppler and Color Flow revealed no significant aortic regurgitation. There is no significant aortic valvular stenosis. MITRAL VALVE The mitral valve is thickened but opens well. There is no mitral valve stenosis. Doppler and Color-fl ow revealed trace mitral regurgitation. TRICUSPID VALVE The tricuspid valve is normal in structure and function. Doppler and Color Flow revealed mild tricusp id regurgitation. There is no tricuspid valve stenosis. PULMONIC VALVE The pulmonary valve is normal in structure and function. Doppler and Color Flow revealed trace pulmon ic valvular regurgitation. GREAT VESSELS The aortic root is normal in size. The IVC is normal in size and collapses >50% with inspiration. PERICARDIAL EFFUSION There is a small pericardial effusion. Critical Notification Critical Value: No <Conclusion> The left ventricular systolic function is normal. The Ejection Fraction is 65% There is normal LV segmental wall motion. Trace mitral regurgitation. Mild tricuspid regurgitation. There is a small pericardial effusion. Signed by : Darvin Cespedes, Electronically Approved : 11/05/2017 11:33:31
--- NOTE | 2017-11-05 12:05 | PDOC ---
NIKHILNUVIA M MEDICAL OFFICE REPRESENTATIVE 11/05/17 1204: CARDIO Progress Notes Date and Time Date of Service 11/05/2017 Time of Evaluation 1157 Subjective Subjective: No Palpitations, No Dizziness, Other (c/o dyspnea and chest pain ) Vitals Vitals Vital Signs Date Time Temp Pulse Resp B/P (MAP) Pulse Ox O2 Delivery O2 Flow Rate FiO2 11/05/17 11:09 96 Room Air 11/05/17 11:00 97.8 94 18 160/82 (108) 97.8 Weight Weight [ ] Input and Output Intake and Output Intake and Output 11/05/17 07:00 Intake Total 420 ml Output Total 850 ml Balance -430 ml Intake Oral 420 ml Output Urine Total 850 ml Laboratory Labs Laboratory Tests Test 11/04/17 12:20 11/04/17 13:10 11/04/17 16:24 11/04/17 16:43 Urine Random Sodium 79 mmol/L (Not Estab.) Reticulocyte Count (auto) 1.5 % (0.5-2.5) Estimated GFR (Non- 17 (>59) Hemoglobin A1c 9.4 % (4.8-5.6) Uric Acid 7.2 mg/dL (2.6-6.0) Iron Level 36 ug/dL (50-170) Total Iron Binding Capacity 202 ug/dL (250-450) Iron Saturation 18 % (15-34) Ferritin 84 ng/mL (8-252) Creatine Kinase 170 U/L (26-192) EGFR 20 (>59) PTH (Intact) Specimen Description Comment (.) Parathyroid Hormone (Intact) 142 pg/mL (15-65) Calcium (PTH Intact) 8.0 mg/dL (8.7-10.2) Creatinine (PTH Intact) 3.10 mg/dL (0.57-1.00) Phosphorus (PTH Intact) 4.4 mg/dL (2.5-4.5) Glucose (Fingerstick) 63 mg/dL (70-99) 60 mg/dL (70-99) Test 11/04/17 17:14 11/04/17 20:33 11/05/17 03:05 11/05/17 07:42 Glucose (Fingerstick) 150 mg/dL (70-99) 292 mg/dL (70-99) 159 mg/dL (70-99) Hemoglobin 8.1 g/dL (12.0-15.5) Sodium Level 136 mmol/L (136-145) Potassium Level 4.0 mmol/L (3.5-5.1) Chloride Level 105 mmol/L (98-107) Carbon Dioxide Level 23 mmol/L (21-32) Anion Gap 8 (6-14) Blood Urea Nitrogen 37 mg/dL (7-20) Creatinine 3.3 mg/dL (0.6-1.0) Estimated GFR (Cockcroft-Gault) 18.2 Glucose Level 287 mg/dL (70-99) Calcium Level 8.3 mg/dL (8.5-10.1) Phosphorus Level 3.4 mg/dL (2.6-4.7) Magnesium Level 1.7 mg/dL (1.8-2.4) Albumin 1.8 g/dL (3.4-5.0) Test 11/05/17 11:09 Glucose (Fingerstick) 208 mg/dL (70-99) Review of Systems Cardiovascular: Yes chest pain Gastrointestional: Yes: constipation Physical Exam HEENT: Neck Supple W Full Motion Chest: Symmetric LUNGS: Other (coarse) Heart: S1S2, RRR Abdomen: Soft N/T Extremities: No Edema Neurology: alert, oriented, follow commands Assessment Assessment 1. Acute on chronic probable systolic and diastolic dysfunction. 2. CHELITA on presumed CKD 3. DM2 4. HTN 5. chest pain Plan Plan 1. continue to await records from [place] 2. TTE with preserved LV function 3. diuresis per nephrology 4. continue anti-hypertensive Other Comments TTE: The left ventricular systolic function is normal. The Ejection Fraction is 65% There is normal LV segmental wall motion. Trace mitral regurgitation. Mild tricuspid regurgitation. There is a small pericardial effusion. LORI HERNANDEZ MD 11/05/17 1521: CARDIO Progress Notes Plan Plan pt. seen and examined. Agree with above AGRICULTURAL INSPECTOR note. No clear cardiac source of her edema. Likely renal insuff. Await proteinuria eval Supportive care from cardiac standpoint. Will follow along NUVIA TEJEDA APRN Nov 05, 2017 12:04 LORI HERNANDEZ MD Nov 05, 2017 15:21
[2017-11-05 13:19] LABS: KAPPA FREE 125.9 mg/L (3.3-19.4); KAPPA LAMBDA RATIO 1.52 (0.26-1.65); LAMBDA FREE 82.8 mg/L (5.7-26.3)
[2017-11-05 15:00] VITALS: BP 146/68
[2017-11-05 17:16] LABS: ALBUM 2.3 g/dL (2.9-4.4); ALPHA 1 0.2 g/dL (0.0-0.4); ALPHA 2 0.9 g/dL (0.4-1.0); GAMMA 1.4 g/dL (0.4-1.8); IMMUNOGLOBULIN A 278 mg/dL (87-352); IMMUNOGLOBULIN G 1438 mg/dL (700-1600); IMMUNOGLOBULIN M 180 mg/dL (26-217); PROTEIN TOTAL 5.7 g/dL (6.0-8.5); SPEP AG RATIO 0.7 (0.7-1.7)
[2017-11-05 19:00] VITALS: BP 135/73
[2017-11-05] MEDS: ATORVASTATIN CALCIUM 10 MG TABLET. PO SCH (20:04)
[2017-11-05 20:10] LABS: TOTAL SERUM CREATININE 2.79 mg/dL (0.57-1.00); TOTAL URINE CREATININE 105.3 mg/dL (Not Estab.)
[2017-11-05] MEDS: INSULIN GLARGINE 300 UNITS/3 ML INSULN.PEN. SQ SCH (20:10)
[2017-11-05 23:00] VITALS: BP 130/73
[2017-11-06 00:39] LABS: UR PROTEIN 1226.3 mg/dL (Not Estab.)
[2017-11-06 03:00] VITALS: BP 130/75
[2017-11-06 07:00] VITALS: BP 134/83
[2017-11-06] MEDS: BUDESONIDE 0.5 MG/2 ML NEBU. NEB SCH (07:29)
[2017-11-06] MEDS: IPRATRPIUM/ALBUTEROL 0.5/2.5MG 3 ML NEBU. NEB SCH ×2 (07:29→11:30)
[2017-11-06 07:34] LABS: ALBUMIN 2.1 g/dL (3.4-5.0); CALCIUM 8.7 mg/dL (8.5-10.1); CREATININE 3.2 mg/dL (0.6-1.0); GFR 18.9; MAGNESIUM 1.9 mg/dL (1.8-2.4); PHOSPHORUS 4.3 mg/dL (2.6-4.7); POTASSIUM 3.9 mmol/L (3.5-5.1)
[2017-11-06] MEDS: INSULIN LISPRO 300 UNITS/3 ML INSULN.PEN. SQ SCH ×2 (08:03)
[2017-11-06] MEDS: CHOLECALCIFEROL (VITAMIN D3) 1,000 UNIT TABLET PO SCH (08:41)
[2017-11-06] MEDS: OLANZapine 5 MG TABLET PO SCH (08:41)
[2017-11-06] MEDS: FOLIC/VIT B COMP W-C (RENAL) TABLET. PO SCH (08:41)
[2017-11-06] MEDS: FLUoxetine HCL 20 MG CAPSULE PO SCH (08:41)
[2017-11-06] MEDS: CARVEDILOL 12.5 MG TABLET. PO SCH (08:42)
[2017-11-06] MEDS: amLODIPine BESYLATE 10 MG TABLET PO SCH (08:42)
[2017-11-06] MEDS: FERROUS SULFATE 325 MG TABLET. PO SCH (08:42)
[2017-11-06] MEDS: ACETAMINOPHEN 500 MG TABLET PO SCH (08:43)
--- NOTE | 2017-11-06 10:17 | PDOC3 ---
Discharge Summary Visit Information Date of Admission: Nov 04, 2017 Date of Discharge: Nov 06, 2017 Admitting Diagnosis Comment: 1. Acute on chronic probable systolic and diastolic dysfunction. 2. CHELITA on presumed CKD 3. DM2 uncontrolled 4. HTN 5. GEn weakness Final Diagnosis Problems Medical Problems: (1) Acute on chronic renal failure Status: Acute (2) Chest pain Status: Acute (3) Dyspnea Status: Acute Brief Hospital Course Allergies Allergies Coded Allergies Type Severity Reaction Last Updated Verified Penicillins Allergy Unknown 11/04/17 Yes metoclopramide Allergy Unknown 11/04/17 Yes Uncoded Allergies Type Severity Reaction Last Updated Verified peanuts Allergy Severe Swelling 11/04/17 Vital Signs Vital Signs Date Time Temp Pulse Resp B/P (MAP) Pulse Ox O2 Delivery O2 Flow Rate FiO2 11/06/17 08:42 80 130/75 11/06/17 07:30 98 Nasal Cannula 2.0 11/06/17 07:00 98.1 18 98.1 Lab Results Laboratory Tests Test 11/04/17 10:20 11/04/17 10:54 11/04/17 12:20 11/04/17 12:30 Troponin I Quantitative < 0.017 ng/mL (0.000-0.055) Glucose (Fingerstick) 369 mg/dL (70-99) Urine Random Sodium 79 mmol/L (Not Estab.) Urine Immunofixation Comments Comment (.) Urine Protein 1226.3 mg/dL (Not Estab.) Urine Creatinine 24 Hour Comment mg/24 hr (800-1800) Creatinine Clearance 24 Hour Comment mL/min (88-128) Urine Protein 24 Hr Calculated Comment mg/24 hr (30-150) Creatinine 2.79 mg/dL (0.57-1.00) Estimated GFR (Non- 20 (>59) EGFR 23 (>59) Test 11/04/17 13:10 11/04/17 16:24 11/04/17 16:43 11/04/17 17:14 Reticulocyte Count (auto) 1.5 % (0.5-2.5) Estimated GFR (Non- 17 (>59) Hemoglobin A1c 9.4 % (4.8-5.6) Uric Acid 7.2 mg/dL (2.6-6.0) Iron Level 36 ug/dL (50-170) Total Iron Binding Capacity 202 ug/dL (250-450) Iron Saturation 18 % (15-34) Ferritin 84 ng/mL (8-252) Creatine Kinase 170 U/L (26-192) Total Protein (PEP) 5.7 g/dL (6.0-8.5) Albumin (PEP) 2.3 g/dL (2.9-4.4) Globulin 3.4 g/dL (2.2-3.9) Albumin/Globulin Ratio 0.7 (0.7-1.7) Qqtey-1-Xhmjogbmk 0.2 g/dL (0.0-0.4) Dgysw-5-Oqlyegbrk 0.9 g/dL (0.4-1.0) Beta Globulins 1.0 g/dL (0.7-1.3) Gamma Globulins 1.4 g/dL (0.4-1.8) Protein Electrophoresis M-Teto Not observed g/dL (Not Protein Electrophoresis Comment Comment (.) EGFR 20 (>59) PTH (Intact) Specimen Description Comment (.) Parathyroid Hormone (Intact) 142 pg/mL (15-65) Calcium (PTH Intact) 8.0 mg/dL (8.7-10.2) Creatinine (PTH Intact) 3.10 mg/dL (0.57-1.00) Phosphorus (PTH Intact) 4.4 mg/dL (2.5-4.5) Immunoglobulin G 1438 mg/dL (700-1600) Immunoglobulin A 278 mg/dL (87-352) Immunoglobulin M 180 mg/dL (26-217) Immunoglobulin [place]/Lambda Ratio 1.52 (0.26-1.65) Serum Immunofixation Comments Comment (.) Free [place] Light Chains 125.9 mg/L (3.3-19.4) Free Lambda Light Chains 82.8 mg/L (5.7-26.3) Hepatitis B Core Total Antibody Negative (Negative) Glucose (Fingerstick) 63 mg/dL (70-99) 60 mg/dL (70-99) 150 mg/dL (70-99) Test 11/04/17 20:33 11/05/17 03:05 11/05/17 07:42 11/05/17 11:09 Glucose (Fingerstick) 292 mg/dL (70-99) 159 mg/dL (70-99) 208 mg/dL (70-99) Hemoglobin 8.1 g/dL (12.0-15.5) Sodium Level 136 mmol/L (136-145) Potassium Level 4.0 mmol/L (3.5-5.1) Chloride Level 105 mmol/L (98-107) Carbon Dioxide Level 23 mmol/L (21-32) Anion Gap 8 (6-14) Blood Urea Nitrogen 37 mg/dL (7-20) Creatinine 3.3 mg/dL (0.6-1.0) Estimated GFR (Cockcroft-Gault) 18.2 Glucose Level 287 mg/dL (70-99) Calcium Level 8.3 mg/dL (8.5-10.1) Phosphorus Level 3.4 mg/dL (2.6-4.7) Magnesium Level 1.7 mg/dL (1.8-2.4) Albumin 1.8 g/dL (3.4-5.0) Test 11/05/17 17:15 11/05/17 20:03 11/06/17 06:42 11/06/17 07:26 Glucose (Fingerstick) 217 mg/dL (70-99) 198 mg/dL (70-99) 152 mg/dL (70-99) Sodium Level 135 mmol/L (136-145) Potassium Level 3.9 mmol/L (3.5-5.1) Chloride Level 105 mmol/L (98-107) Carbon Dioxide Level 24 mmol/L (21-32) Anion Gap 6 (6-14) Blood Urea Nitrogen 38 mg/dL (7-20) Creatinine 3.2 mg/dL (0.6-1.0) Estimated GFR (Cockcroft-Gault) 18.9 Glucose Level 172 mg/dL (70-99) Calcium Level 8.7 mg/dL (8.5-10.1) Phosphorus Level 4.3 mg/dL (2.6-4.7) Magnesium Level 1.9 mg/dL (1.8-2.4) Albumin 2.1 g/dL (3.4-5.0) Laboratory Tests Test 11/05/17 11:09 11/05/17 17:15 11/05/17 20:03 11/06/17 06:42 Glucose (Fingerstick) 208 mg/dL (70-99) 217 mg/dL (70-99) 198 mg/dL (70-99) Sodium Level 135 mmol/L (136-145) Potassium Level 3.9 mmol/L (3.5-5.1) Chloride Level 105 mmol/L (98-107) Carbon Dioxide Level 24 mmol/L (21-32) Anion Gap 6 (6-14) Blood Urea Nitrogen 38 mg/dL (7-20) Creatinine 3.2 mg/dL (0.6-1.0) Estimated GFR (Cockcroft-Gault) 18.9 Glucose Level 172 mg/dL (70-99) Calcium Level 8.7 mg/dL (8.5-10.1) Phosphorus Level 4.3 mg/dL (2.6-4.7) Magnesium Level 1.9 mg/dL (1.8-2.4) Albumin 2.1 g/dL (3.4-5.0) Test 11/06/17 07:26 Glucose (Fingerstick) 152 mg/dL (70-99) Brief Hospital Course Ms. Castillo is a 47 old [place] female who follows at the [facility], basically she has CK D around stage III with a baseline creatinine of 3-3.5 as per nephrology. She comes in because of mild fluid overload, I really did not appreciate any leg swelling but she claims she gained a little bit of weight undocumented and some ascites which is not appreciable also. Chest x-ray maybe mild CHF. She did get diuresis here. Comanage with cardiology and nephrology. Stable to go home with no PT needs with no change in meds. She is already on Lasix 60 by mouth twice a day and we have been giving the same. Otherwise does not need any scripts, patient seen and examined, discussed with Dr. Isabel Consuls performed nephrology, cardiology Proc performed none Baseline creatinine 3-3.5, encouraged compliance DC time 31 minutes. 50% DC education, encouraging compliance. 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) Disposition/Orders: D/C to Home Scheduled Acetaminophen (Acetaminophen) 500 Mg Tablet, 2 TAB PO BID, #60 Ref 1 (Reported) Entered as Reported by: ILIR AZUL on 11/04/17613 Last Action: Continued on 11/04/17857 by DOROTHY STARK Amlodipine Besylate (Amlodipine Besylate) 10 Mg Tablet, 10 MG PO DAILY, ( Reported) Entered as Reported by: ILIR AZUL on 11/04/17613 Last Action: Continued on 11/04/17857 by DOROTHY STARK Atorvastatin Calcium (Atorvastatin Calcium) 10 Mg Tablet, 10 MG PO HS for FOR CHOLESTEROL, #30 Ref 0 (Reported) Entered as Reported by: ILIR AZUL on 11/04/17613 Last Action: Continued on 11/04/17857 by DOROTHY STARK Carvedilol (Carvedilol) 25 Mg Tablet, 1 TAB PO BID, #180 Ref 1 (Reported) Entered as Reported by: ILIR AZUL on 11/04/17613 Last Action: Converted on 11/04/17857 by DOROTHY STARK Cholecalciferol (Vitamin D3) (Vitamin D3) 1,000 Unit Tablet, 1 TAB PO DAILY, # 30 Ref 5 (Reported) Entered as Reported by: ILIR AZUL on 11/04/17613 Last Action: Continued on 11/04/17857 by DOROTHY STARK Diltiazem Hcl (Diltiazem 24HR Cd) 120 Mg Cap.er.24h, 240 MG PO DAILY, (Reported) Entered as Reported by: ILIR AZUL on 11/04/17613 Last Action: Continued on 11/04/17857 by DOROTHY STARK Ferrous Sulfate (Ferrous Sulfate) 325 Mg Tablet, 325 MG PO DAILY, (Reported) Entered as Reported by: ILIR AZUL on 11/04/17613 Last Action: Continued on 11/04/17857 by DOROTHY STARK Fluoxetine Hcl (Fluoxetine Hcl) 40 Mg Capsule, 1 CAP PO DAILYWBKFT, #30 Ref 2 ( Reported) Entered as Reported by: ILIR AZUL on 11/04/17613 Last Action: Converted on 11/04/17857 by DOROTHY STARK Fluticasone/Salmeterol (Advair 500-50 Diskus) 1 Each Disk.w.dev, 1 PUFF IH BID, #1 Ref 5 (Reported) Entered as Reported by: ILIR AZUL on 11/04/17613 Last Action: Converted on 11/04/17857 by DOROTHY STARK Folic Acid/Vitamin B Comp W-C (Renal Caps Softgel) 1 Mg Capsule, 1 CAP PO DAILY , #30 Ref 5 (Reported) Entered as Reported by: ILIR AZLU on 11/04/17613 Last Action: Converted on 11/04/17857 by DOROTHY STARK Furosemide (Furosemide) 40 Mg Tablet, 60 MG PO BID, (Reported) Entered as Reported by: ILIR AZUL on 11/04/17613 Last Action: HELD on 11/04/17857 by DOROTHY STARK Insulin Aspart (Novolog) 100 Unit/1 Ml Cartridge, 10 UNIT SQ TIDBFRMEAL, ( Reported) Entered as Reported by: ILIR AZUL on 11/04/17613 Last Action: Converted on 11/04/17820 by EMELIA GARCÍA Insulin Glargine,Hum.rec.anlog (Lantus Solostar) 100 Unit/1 Ml Insuln.pen, 30 UNIT SQ QHS, #15 Ref 3 (Reported) Entered as Reported by: ILIR AZUL on 11/04/17613 Last Action: Continued on 11/04/17857 by DOROTHY STARK Ipratropium/Albuterol Sulfate (Duoneb 0.5-3(2.5) Mg/3 Ml) 3 Ml Ampul.neb, 3 ML NEB BID, (Reported) Entered as Reported by: ILIR AZUL on 11/04/17613 Last Action: HELD on 11/04/17857 by DOROTHY STARK Medroxyprogesterone Acetate (Medroxyprogesterone Acetate) 10 Mg Tablet, 1 TAB PO DAILY, #10 Ref 4 (Reported) Entered as Reported by: ILIR AZUL on 11/04/17613 Last Action: Converted on 11/04/17857 by DOROTHY STARK Olanzapine (Olanzapine) 5 Mg Tablet, 5 MG PO DAILY, (Reported) Entered as Reported by: ILIR AZUL on 11/04/17613 Last Action: Converted on 11/04/17857 by DOROTHY STARK Scheduled PRN Diphenhydramine Hcl (Benadryl) 25 Mg Capsule, 25 MG PO PRN Q4-6HRS PRN for INSOMNIA, (Reported) Entered as Reported by: ILIR AZUL on 11/04/17613 Last Action: Continued on 11/04/17857 by DOROTHY CHAN MD Nov 06, 2017 10:17
--- NOTE | 2017-11-06 10:36 | PDOC ---
Renal-Progress Notes Subjective Notes Notes NONE History of Present Illness Hx of present illness STABLE Vitals Vitals Vital Signs Date Time Temp Pulse Resp B/P (MAP) Pulse Ox O2 Delivery O2 Flow Rate FiO2 11/06/17 08:42 80 130/75 11/06/17 08:00 Room Air 2.0 11/06/17 07:30 98 11/06/17 07:00 98.1 18 98.1 Weight Weight [ ] I.O. Intake and Output Intake and Output 11/06/17 07:00 Intake Total 1800 ml Output Total 1600 ml Balance 200 ml Intake Oral 1800 ml Output Urine Total 1600 ml # Voids 1 Labs Labs Laboratory Tests Test 11/05/17 11:09 11/05/17 17:15 11/05/17 20:03 11/06/17 06:42 Glucose (Fingerstick) 208 mg/dL (70-99) 217 mg/dL (70-99) 198 mg/dL (70-99) Sodium Level 135 mmol/L (136-145) Potassium Level 3.9 mmol/L (3.5-5.1) Chloride Level 105 mmol/L (98-107) Carbon Dioxide Level 24 mmol/L (21-32) Anion Gap 6 (6-14) Blood Urea Nitrogen 38 mg/dL (7-20) Creatinine 3.2 mg/dL (0.6-1.0) Estimated GFR (Cockcroft-Gault) 18.9 Glucose Level 172 mg/dL (70-99) Calcium Level 8.7 mg/dL (8.5-10.1) Phosphorus Level 4.3 mg/dL (2.6-4.7) Magnesium Level 1.9 mg/dL (1.8-2.4) Albumin 2.1 g/dL (3.4-5.0) Test 11/06/17 07:26 Glucose (Fingerstick) 152 mg/dL (70-99) Micro Micro Microbiology 11/04/17 Urine Culture - Final, Complete 11/04/17 Urine Culture Result 1 (DESIRAE) - Final, Complete Review of Systems Cardiovascular: Yes chest pain Gastrointestional: Yes: constipation Physical Exam General Appearance: no apparent distress Respiratory: bilateral CTA Heart: S1S2 Abdomen: soft, bowel sounds present Genitourinary: bladder flat Extremities: pulses present Neurology: alert, oriented, follow commands Assessment Assessment IMP CKD STAGE 4 WITH CR OF ABOUT 3.0-3.5 DM II HTN ANEMIA CHEST PAIN NON COMPLIANCE LOW MAG-SHOULD CORRECT ITSELF PLAN D/C PLANS NOTED WILL FOLLOW OP ENC PT TO KEEP APPT ADE BECK MD Nov 06, 2017 10:36
[2017-11-06 11:14] VITALS: BP 130/80
[2017-11-07 15:39] LABS: ALBUMIN UR 47.5 % (.); ALPHA 1 UR 7.4 % (.); ALPHA 2 UR 11.7 % (.); BETA UR 13.7 % (.); GAMMA UR 19.7 % (.); PROTEIN 24 UR 17199 mg/24 hr (30-150); PROTEIN UR 1228.5 mg/dL (Not Estab.)
== END 2017-11-06 12:05 | disposition home or self-care (01) | DRG 291 ==
LOC: ER 01:19 → 5 SOUTH 03:53
PROVIDERS: ADMIT Internal Medicine; ATTEND Internal Medicine
DX: I13.0 Hypertensive heart and chronic kidney disease with heart failure and stage 1 through stage 4 chronic kidney disease, or unspecified chronic kidney disease (principal); I50.43 Acute on chronic combined systolic (congestive) and diastolic (congestive) heart failure; N17.9 Acute kidney failure, unspecified; E87.2 Acidosis; N18.4 Chronic kidney disease, stage 4 (severe); E78.00 Pure hypercholesterolemia, unspecified; E11.22 Type 2 diabetes mellitus with diabetic chronic kidney disease; E78.5 Hyperlipidemia, unspecified; F32.9 Major depressive disorder, single episode, unspecified; E11.40 Type 2 diabetes mellitus with diabetic neuropathy, unspecified; J43.9 Emphysema, unspecified; E89.0 Postprocedural hypothyroidism; D64.9 Anemia, unspecified; Z90.49 Acquired absence of other specified parts of digestive tract; Z98.51 Tubal ligation status; Z82.49 Family history of ischemic heart disease and other diseases of the circulatory system; Z88.0 Allergy status to penicillin; Z88.8 Allergy status to other drugs, medicaments and biological substances; Z79.4 Long term (current) use of insulin; Z91.010 Allergy to peanuts; Z87.11 Personal history of peptic ulcer disease; Z87.891 Personal history of nicotine dependence; Z91.19 Patient's noncompliance with other medical treatment and regimen; E11.65 Type 2 diabetes mellitus with hyperglycemia
CPT/HCPCS: 36415; 71045; 76770; 80053; 80069; 81001; 82550; 82575; 82728; 82962; 83036; 83520; 83540; 83550; 83735; 83880; 83970; 84156; 84165; 84166; 84300; 84484; 84550; 85018; 85025; 85045; 86334; 86704; 87086; 93005; 93306; 94640; 94760; 96374; J1815; J1940; J2270; J7042; J7613; J7620; J7626; 99285-25